=== PATIENT | male | born 1985 | race Caucasian/White ===

== ENCOUNTER 2021-03-17 09:37 | Emergency (ER) | payer OTHER ==
[~2021-03-17] VITALS: Ht 167.6 cm; Wt 59.0 kg
--- NOTE | 2021-03-17 09:43 | NUR ---
pt bib Pd for medical clearance, per report pt c/o shortness of breath s/p getting arrested. denies any chest pain. stable vitals officer captain. awaiting md magaña.
--- NOTE | 2021-03-17 09:48 | NUR ---
dr odom at bedside for eval.
--- NOTE | 2021-03-17 10:01 | NUR ---
radiology at bedside for chest xray.
[2021-03-17] MEDS ORDERED: AZIT250T13 PO (10:21)
[2021-03-17] MEDS ORDERED: AZITHROMYCIN 250 MG TABLET ONE (10:24)
[2021-03-17] MEDS: AZITHROMYCIN 250 MG TABLET PO ONE (10:32)
--- NOTE | 2021-03-17 10:35 | NUR ---
pt is medically cleared. discharged to [facility] in stable condition.
[2021-03-17 10:36] VITALS: BP 132/80
== END 2021-03-17 10:37 ==
LOC: ER 09:57
DX: J18.9 Pneumonia, unspecified organism (principal); R56.9 Unspecified convulsions; F10.10 Alcohol abuse, uncomplicated; F17.200 Nicotine dependence, unspecified, uncomplicated; Y90.9 Presence of alcohol in blood, level not specified; Z59.0 Homelessness
CPT/HCPCS: 71045-TC